=== PATIENT | male | born 1980 | race Caucasian/White ===

== ENCOUNTER 2018-11-05 05:00 | Emergency (ER) | payer MEDICAID ==
[~2018-11-05] VITALS: Ht 177.8 cm; Wt 108.9 kg
[2018-11-05 05:05] VITALS: BP 135/90
--- NOTE | 2018-11-05 05:05 | NUR ---
TO BED # 09 AMBULATORY
--- NOTE | 2018-11-05 05:15 | NUR ---
PT BIB FATHER C/O LEFT LOWER BACK PAIN. PT STATES SUDDEN ONSET OF ACHING PAIN X2 DAYS AGO, PAIN HAS INCREASED IS 9/10 WHEN WALKING OR STANDING. PT STATES TOOK IBUPROFEN AT HOME W/O RELIEF. PAIN ELEVIATES W/ LAYING DOWN, PT DENIES TRAUMA OR INJURY. CAP REFIL <2, PEDIAL PULSE WNL BL. AROM OF LOWER EXTREMITIES, PT AMBULATES W/ STEADY GATE. PT SPEAKING IN COMPLETE SENTENCES, SPEACH CLEAR. PT ACTING APPROPRIATLY. PT IN BED; BED IN LOWER LOCKED POSITION, BEDRAILS UP X2. PENDING ER MD BRAN. WILL CONTINUE TO MONITOR. PMH: DENIES
--- NOTE | 2018-11-05 05:27 | NUR ---
Dr. Najera evaluating patient at bedside.
[2018-11-05] MEDS ORDERED: KETOROLAC 60 MG/2 ML VIAL IM ONE (05:35)
--- NOTE | 2018-11-05 05:42 | NUR ---
PT TO X-RAY VIA WHEELCHAIR BY TECH.
--- NOTE | 2018-11-05 05:42 | NUR ---
PT TAKEN TO RAD
--- NOTE | 2018-11-05 06:15 | NUR ---
Patient discharged with v/s stable. Patient acting appropriatly, states the medication he recieved was helpful. Patients states pain has decreased to 3/10, and is ready to go home. Written and verbal after care instructions given and explained. Patient alert, oriented and verbalized understanding of instructions. Ambulatory with steady gait. All questions addressed prior to discharge. ID band removed. Patient advised to follow up with PMD. Rx of Tramadol Hydrochloride, Motrin, and Robaxin given. Patient educated on indication of medication including possible reaction and side effects. Opportunity to ask questions provided and answered.
[2018-11-05 06:18] VITALS: BP 129/87
== END 2018-11-05 06:15 | disposition home or self-care (01) ==
LOC: MED 05:00
DX: S39.012A Strain of muscle, fascia and tendon of lower back, initial encounter (principal); R03.0 Elevated blood-pressure reading, without diagnosis of hypertension; X58.XXXA Exposure to other specified factors, initial encounter; Y93.89 Activity, other specified; Y92.89 Other specified places as the place of occurrence of the external cause; Y99.8 Other external cause status
CPT/HCPCS: 72100; 96372; 99283; J1885